=== PATIENT | female | born 1985 | race Caucasian/White ===

== ENCOUNTER 2018-03-26 15:19 | Emergency (ER) | payer OTHER ==
[~2018-03-26] VITALS: Ht 165.1 cm; Wt 63.5 kg
[2018-03-26] MEDS ORDERED: CLINDAMYCIN PHOS 600 MG/ 4 ML VIAL IM ONE (15:30)
[2018-03-26] MEDS ORDERED: HYDROCODONE/APAP 10MG-325MG TAB PO ONE (15:30)
--- OUTSIDE RECORDS SUMMARY | 2018-03-28 14:06 | XMS REPORT ---
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 Allergies, Adverse Reactions, Alerts This patient has no known allergies or adverse reactions. Medications This patient has no known medications. Encounters Start Date/Time End Date/Time Encounter Type Admission Type Attending [facility] Facility Care Department Encounter ID 2018-04-11 00:00:00 2018-04-11 00:00:00 Outpatient [facility] [id number] 2018-04-05 00:00:00 2018-04-05 00:00:00 Outpatient [facility] [id number] 2018-03-24 14:50:13 2018-03-24 14:50:13 Outpatient [facility] [id number] 2018-03-23 00:00:00 2018-03-23 00:00:00 Outpatient [facility] [id number] 2018-03-10 08:12:33 2018-03-10 08:12:33 Outpatient [facility] [id number] 2018-02-23 09:46:05 2018-02-23 09:46:05 Outpatient [facility] [id number] 2018-02-22 00:00:00 2018-02-22 00:00:00 Outpatient [facility] [id number] 2018-01-26 07:49:37 2018-01-26 07:49:37 Outpatient [facility] [id number] 2018-01-03 13:48:24 2018-01-03 13:48:24 Outpatient [facility] [id number] 2017-12-10 08:24:58 2017-12-10 08:24:58 Outpatient [facility] [id number] 2017-11-03 07:35:09 2017-11-03 07:35:09 Outpatient [facility] [id number] 2017-10-14 00:00:00 2017-10-14 00:00:00 Outpatient [facility] [id number] 2017-10-08 08:57:04 2017-10-08 08:57:04 Outpatient [facility] [id number]
--- OUTSIDE RECORDS SUMMARY | 2018-03-28 14:06 | XMS REPORT | Clinical Summary ---
Author Author [facility] Organization [facility] Address Unknown Phone Unavailable Care Team Providers Care Supervisor Curing Room Name Role Phone Bebe Oden MD PCP Allergies Active Allergy Reactions Severity Noted Date Comments Sulfamethoxazole-Trimetho Hives, Breathing 04/21/2017 prim problems, Swelling Vancomycin Hives, Breathing 04/21/2017 problems, Swelling Current Medications Prescription Sig. Disp. Refills Start End Date Status Date lisinopril-hydrochlorothi Take 1/2 tablet by mouth 45 tablet 2 08/08/19 Active azide (ZESTORETIC) in the morning. 18 10-12.5 mg per tabletIndications: Essential hypertension, benign ciclesonide (ZETONNA) 37 Use 1 [place] in each 6.1 g 0 10/09/19 Active mcg/actuation nasal HFA nostril daily. 18 inhalerIndications: Allergic sinusitis cetirizine (ZYRTEC) 10 mg Take 1 tablet by mouth 30 tablet 1 01/04/20 Active tabletIndications: daily (with dinner) As 18 Seasonal allergic needed for allergies. rhinitis, unspecified trigger busPIRone (BUSPAR) 10 mg Take 2 tablets by mouth 2 120 tablet 3 01/27/20 Active tabletIndications: ALIYAH times daily. 18 (generalized anxiety disorder) gabapentin (NEURONTIN) Take 2 capsules by mouth 120 capsule 0 03/10/20 Active 300 mg in the morning, 1 capsule 18 capsuleIndications: in the afternoon, and 1 Bilateral carpal tunnel capsule at night. syndrome busPIRone (BUSPAR) 10 mg Take 2 tablets by mouth 2 120 tablet 2 04/21/20 06/23/19 Discontin tablet times daily. 17 18 ued lisinopril-hydrochlorothi Take 1 tablet by mouth 30 tablet 0 05/13/20 05/28/20 Discontin azide (ZESTORETIC) daily. 17 17 ued 10-12.5 mg per tabletIndications: Essential hypertension, benign lisinopril-hydrochlorothi Take 1 tablet by mouth 30 tablet 1 05/28/20 08/08/19 Discontin azide (ZESTORETIC) daily. 17 18 ued 10-12.5 mg per tabletIndications: Essential hypertension, benign busPIRone (BUSPAR) 10 mg Take 2 tablets by mouth 2 120 tablet 2 06/23/19 08/08/19 Discontin tabletIndications: ALIYAH times daily. 18 18 ued (generalized anxiety disorder) gabapentin (NEURONTIN) Take 1 capsule by mouth 3 90 capsule 0 07/23/19 08/08/19 Discontin 300 mg times daily. 18 18 ued capsuleIndications: Bilateral carpal tunnel syndrome gabapentin (NEURONTIN) Take 1 capsule by mouth 3 90 capsule 2 08/08/19 12/11/19 Discontin 300 mg times daily. 18 18 ued capsuleIndications: Bilateral carpal tunnel syndrome busPIRone (BUSPAR) 10 mg Take 2 tablets by mouth 2 120 tablet 2 08/08/19 11/04/19 Discontin tabletIndications: ALIYAH times daily. 18 18 ued (generalized anxiety disorder) cetirizine (ZYRTEC) 10 mg Take 1 tablet by mouth 30 tablet 1 10/09/19 01/04/20 Discontin tabletIndications: daily (with dinner). 18 18 ued Allergic sinusitis azithromycin (ZITHROMAX) Take 2 tablets by mouth 6 Each 0 10/09/19 10/14/19 250 mg tabletIndications: on the first day, then 18 18 Allergic sinusitis take one tablet every day for the next 4 days. busPIRone (BUSPAR) 10 mg Take 2 tablets by mouth 2 120 tablet 2 11/04/19 01/27/20 Discontin tabletIndications: ALIYAH times daily. 18 18 ued (generalized anxiety disorder) gabapentin (NEURONTIN) Take 1 capsule by mouth 3 90 capsule 0 12/11/19 01/04/20 Discontin 300 mg times daily. 18 18 ued capsuleIndications: Bilateral carpal tunnel syndrome gabapentin (NEURONTIN) Take 2 capsules by mouth 120 capsule 1 01/04/20 03/10/20 Discontin 300 mg in the morning, 1 capsule 18 18 ued capsuleIndications: in the afternoon, and 1 Bilateral carpal tunnel capsule at night. syndrome Hospital, Clinic, or Ordered Dose Route Frequency Start End Date Status Other Facility Date Administered Medication triamcinolone acetonide 40 mg IX ONCE 10/01/19 10/01/19 Ended (KENALOG-40) injection 40 18 18 mgIndications: Bilateral carpal tunnel syndrome lidocaine 1 % (XYLOCAINE) 1 mL IJ ONCE 10/01/19 10/01/19 Ended injection 1 18 18 mLIndications: Bilateral carpal tunnel syndrome triamcinolone acetonide 40 mg IX ONCE 10/01/19 10/01/19 Ended (KENALOG-40) injection 40 18 18 mgIndications: Bilateral carpal tunnel syndrome lidocaine 1 % (XYLOCAINE) 1 mL IJ ONCE 10/01/19 10/01/19 Ended injection 1 18 18 mLIndications: Bilateral carpal tunnel syndrome methylPREDNISolone sodium 40 mg IM ONCE 10/09/19 10/09/19 Ended succinate (SOLU-MEDROL) 18 18 injection 40 mgIndications: Allergic sinusitis, Acute allergic rhinitis Active Problems Problem Noted Date Essential hypertension, benign 08/08/2017 Bilateral carpal tunnel syndrome 08/08/2017 ALIYAH (generalized anxiety disorder) 08/08/2017 Encounters Date Type Specialty Care Team Description 03/24/2018 Office Visit Family Practice Jorden Negrete MD 03/17/2018 Pharmacy Visit 03/10/2018 Office Visit Family Practice Wilma Carnes NP Bilateral carpal tunnel syndrome (Primary Dx) 03/07/2018 Refill Family Practice Esperanza Medrano MD Bilateral carpal tunnel syndrome 02/23/2018 Procedure Visit Physical Medicine and Almita Magaña MD Bilateral carpal tunnel Rehab syndrome (Primary Dx); Bilateral hand pain; Numbness and tingling in both hands 02/23/2018 Orders Only Family Practice Esperanza Medrano MD Bilateral carpal tunnel syndrome (Primary Dx) 02/23/2018 Telephone Family Practice Esperanza Medrano MD Results 02/03/2018 Pharmacy Visit 02/02/2018 Pharmacy Visit 01/26/2018 Office Visit Psychiatry Raina Arias MD ALIYAH (generalized anxiety disorder); Dietary counseling for Above / Below Normal BMI; Exercise counseling for Above Normal BMI Only! 01/03/2018 Office Visit Family Practice Esperanza Medrano MD Bilateral carpal tunnel syndrome (Primary Dx); Follow up - please schedule pap ; Seasonal allergic rhinitis, unspecified trigger; Need for vaccination 01/03/2018 Pharmacy Visit 12/29/2017 Pharmacy Visit 12/15/2017 Pharmacy Visit 12/10/2017 Office Visit Family Practice Evonne Boyd NP Bilateral carpal tunnel syndrome 12/10/2017 Pharmacy Visit 12/08/2017 Pharmacy Visit 12/08/2017 Pharmacy Visit 12/04/2017 Refill Family Practice Bebe Oden MD Bilateral carpal tunnel syndrome 11/23/2017 Pharmacy Visit 11/21/2017 Pharmacy Visit 11/16/2017 Pharmacy Visit 11/16/2017 Pharmacy Visit 11/09/2017 Pharmacy Visit 11/04/2017 Pharmacy Visit 11/03/2017 Office Visit Psychiatry Raina Arias MD ALIYAH (generalized anxiety disorder) (Primary Dx) 11/03/2017 Pharmacy Visit 11/02/2017 Pharmacy Visit 10/26/2017 Pharmacy Visit 10/08/2017 Office Visit Family Practice Wilma Carnes NP Acute allergic rhinitis (Primary Dx); Allergic sinusitis 10/08/2017 Pharmacy Visit 10/04/2017 Pharmacy Visit 10/03/2017 Pharmacy Visit 10/03/2017 Pharmacy Visit 09/30/2017 Office Visit Family Practice Bebe Oden MD Bilateral carpal tunnel Jorden Negrete MD syndrome (Primary Dx) 09/19/2017 Pharmacy Visit 09/19/2017 Pharmacy Visit 09/02/2017 Pharmacy Visit 09/02/2017 Pharmacy Visit 08/23/2017 Pharmacy Visit 08/09/2017 Pharmacy Visit 08/08/2017 Office Visit Family Practice Raina Arias MD Essential hypertension, Bebe Oden MD benign (Primary Dx); Bilateral carpal tunnel syndrome; ALIYAH (generalized anxiety disorder); Flu vaccine need 08/08/2017 Orders Only Family Practice Bebe Oden MD Bilateral carpal tunnel syndrome 08/08/2017 Pharmacy Visit 08/05/2017 Pharmacy Visit 08/05/2017 Pharmacy Visit 07/23/2017 Office Visit Family Practice Evita Birch MD Bilateral carpal tunnel syndrome (Primary Dx) 07/23/2017 Pharmacy Visit 07/12/2017 Pharmacy Visit 07/12/2017 Pharmacy Visit 07/01/2017 Pharmacy Visit 06/23/2017 Office Visit Psychiatry Raina Arias MD ALIYAH (generalized anxiety disorder) (Primary Dx) 06/23/2017 Pharmacy Visit 06/08/2017 Pharmacy Visit 06/02/2017 Pharmacy Visit 06/01/2017 Pharmacy Visit 05/29/2017 Pharmacy Visit 05/28/2017 Office Visit Family Practice Evonne Boyd NP Essential hypertension, benign 05/28/2017 Pharmacy Visit 05/18/2017 Pharmacy Visit 05/13/2017 Office Visit Family Practice Rogelio Rich MD Essential hypertension, benign (Primary Dx) 05/13/2017 Pharmacy Visit 04/28/2017 Pharmacy Visit 04/27/2017 Orders Only Psychiatry Raina Arias MD ALIYAH (generalized anxiety disorder) 04/26/2017 Pharmacy Visit 04/21/2017 Office Visit Psychiatry Raina Arias MD ALIYAH (generalized anxiety disorder) (Primary Dx) 04/21/2017 Pharmacy Visit after 03/25/2017 Immunizations Name Dates Previously Given Next Due Influenza Vaccine 07/23/2017 (Deferred: Patient Refused) Influenza Vaccine, 08/08/2017 (Deferred: Patient Refused) Seasonal, Injectable Influenza, Seasonal, 05/13/2017 (Deferred: Patient Refused) Injectable TDap (Tetanus Toxoid, 01/03/2018 Reduced Diphtheria Toxoid And Acellular Pertussis, Absorbed) Family History Medical History Relation Name Comments Hypertension Brother Hypertension Maternal Grandmother Cancer Mother adrenal, lung Relation Name Status Comments Brother Maternal Grandmother Mother Social History Tobacco Use Types Packs/Day Years Used Date Current Every Day Smoker Cigarettes 0.5 Smokeless Tobacco: Never Used Tobacco Cessation: Ready to Quit: Yes; Counseling Given: Yes Comments: using Nicotine gums and patches Alcohol Use Drinks/Week oz/Week Comments No Sex Assigned at Date Recorded Not on file Last Filed Vital Signs Vital Sign Reading Time Taken Blood Pressure 119/69 03/24/2018 4:30 PM CDT Pulse 72 03/24/2018 4:30 PM CDT Temperature 36.7 C (98.1 F) 03/24/2018 4:30 PM CDT Respiratory Rate 18 03/24/2018 4:30 PM CDT Oxygen Saturation 97% 01/26/2018 7:49 AM CDT Inhaled Oxygen - - Concentration Weight 74.8 kg (165 lb) 03/24/2018 3:03 PM CDT Height 162.6 cm (5' 4") 03/24/2018 3:03 PM CDT Body Mass Index 28.32 03/24/2018 3:03 PM CDT Plan of Treatment Date Type Specialty Care Team Description 04/05/2018 Office Visit Psychiatry Raina Arias MD [facility] [address] [place] [address] 04/11/2018 Office Visit Plastic Surgery Sammy Rodriguez MD Ref #: [id number] [address] [address] Health Maintenance Due Date Last Done Comments Cervical Cancer Scrn (3 02/26/2005 Yrs) IMM Influenza Seasonal 03/13/2018Mar to August (>/=19 yrs) Procedures Procedure Name Priority Date/Time Associated Diagnosis Comments NEEDLE EMG, 2 EXTREMITIES Routine 02/23/2018 Bilateral carpal tunnel Results for this 10:00 AM CDT syndrome procedure are in the results section. CBC/DIFF Routine 04/27/2017 ALIYAH (generalized anxiety Results for this 10:03 AM BUSINESS PLANNER disorder) procedure are in the results section. COMPREHENSIVE METABOLIC Routine 04/27/2017 ALIYAH (generalized anxiety Results for this PANEL(DBIL NOT INCLUDED) 10:03 AM BUSINESS PLANNER disorder) procedure are in the results section. FREE T4 Routine 04/27/2017 ALIYAH (generalized anxiety Results for this 10:03 AM BUSINESS PLANNER disorder) procedure are in the results section. TEST Routine 04/27/2017 ALIYAH (generalized anxiety Results for this 10:03 AM BUSINESS PLANNER disorder) procedure are in the results section. TSH Routine 04/27/2017 ALIYAH (generalized anxiety Results for this 10:03 AM BUSINESS PL[employer] disorder) procedure are in the results section. VIT D, 25-HYDROXY Routine 04/27/2017 ALIYAH (generalized anxiety Results for this 10:03 AM BUSINESS PLANNER disorder) procedure are in the results section. VITAMIN B12 Routine 04/27/2017 ALIYAH (generalized anxiety Results for this 10:03 AM BUSINESS PLANNER disorder) procedure are in the results section. after 03/25/2017 Results * NEEDLE EMG, 2 EXTREMITIES (02/23/2018 10:00 AM) Narrative Performed At Almita Magaña MD 02/23/20182:38 PM [facility], DEPT PMR [address] [place] [address] ELECTROMYOGRAPHY REPORT NAME : NATALIE NGUYEN GENDER: Female DATE OF : 1985 ORDERING PHYSICIAN: ESPERANZA MEDRANO MD PERF DATE :02/23/2018 10:03 NOTE: RESULTS NOT VALID WITHOUT ATTENDING PHYSICIAN ELECTRONIC SIGNATURE REASON FOR REFERRAL: b/l hand CTS symptoms EMG B/L UE CC: hand numbness HPI:32 year old female with bilateral hand pain, numbness, and tingling for 4 years.Had injections 4 months ago with some improvement of her CTS symptoms.Now hands are starting to bother her again. Left feels worse than right.She is left-handed. REVIEW OF SYSTEMS: Constitutional symptoms:NO FEVER, CHILLS OR WEIGHT CHANGE Gastrointestinal: NO INCONTINENCE Genitourinary: NO INCONTINENCE Musculoskeletal:SEE HPI Skin: NO RASH, LESIONS OR WOUNDS Neurological:+ NUMBNESS -WEAKNESS Psychiatric:-DEPRESSION -ANXIETY Endocrine: -DM - THYROID SOCIAL HISTORY:LIVES WITH HER FATHER AND DAUGHTER IN A HOUSE +TOB - QUIT 3 MONTHS AGO USING VAPOR In past +ETOHand+DRUGS : [employer] FOR 2 YEARS OCCUPATION: [employer] PHYSICAL EXAM CONSTITUTIONAL: GEN APPREARANCE: NAD VITALS: P 69 RR 16 TEMP 97.9 NECK: SUPPLE MUSCULOSKELETAL: DIGITS AND NAILS:NO PITTING INSPECTION:NO ATROPHY PALPATION: NL MUSCLE BULK ROM:FULL STRENGTH: 5/5 BILATERAL UES TONE: NORMAL TONE GAIT: NORMAL SPECIAL TESTS: - TINEL S + PHALEN S - BILATERALLY - SPURLING S SKIN: INSPECTION: NO RASH PALPATION: NL TURGOR NEUROLOGIC: SENSATION: LT DECREASED RIGHT HAND DTR: SYMMETRIC PSYCHIATRIC: ORIENTATION: TO NAME AND MEMORY : GOOD RECALL EVENTS MOOD / AFFECT: APPROPRIATE PHYSICIAN: MD YLUISA MAGAÑA Sensory Nerve / Sites Rec. Site Distance Onset Drew Onset Lat Peak Lat Amp Temp. mm m/s ms ms V C L Median - Digit III (Antidromic) Wrist Dig III 140 38.4 3.6 4.4 28.6 32 L Ulnar - Digit V (Antidromic) Wrist Dig V 140 49.8 2.8 3.4 26.0 32.4 R Median - Digit III (Antidromic) Wrist Dig III 140 34.9 4.0 4.9 13.9 32.5 R Ulnar - Digit V (Antidromic) Wrist Dig V 140 51.7 2.7 3.4 23.0 32.2 Motor Nerve / Sites Rec. Site Distance Velocity Latency Amplitude Temp. mm m/s ms mV C L Median - APB Wrist APB 804.1 8.9 32.2 Elbow APB 220 52.1 8.3 7.3 32 L Ulnar - ADM Wrist ADM 802.7 9.8 31 B.Elbow ADM 210 58.4 6.3 8.8 31 R Median - APB Wrist APB 804.4 8.6 32.4 Elbow APB 225 49.1 9.0 8.7 32.4 R Ulnar - ADM Wrist ADM 802.6 8.2 32.2 B.Elbow ADM 220 63.0 6.0 8.9 32.2 EMG EMG Summary Table Spontaneous MUAP Comment Muscle IA Fib PSW Fasc Other Effort Recruit Dur Amp Polys Comment R. Abductor pollicis brevis Normal 0 0 None . Normal Normal Normal Normal None . L. Abductor pollicis brevis Normal 0 0 None . Normal Normal Normal Normal None . NERVE SUMMARY: SENSORY: RIGHT MEDIAN: PROLONGED PEAK LATENCY, NORMAL AMPLITUDE RIGHT ULNAR: NORMAL PEAK LATENCY, NORMAL AMPLITUDE LEFT MEDIAN: PROLONGED PEAK LATENCY, NORMAL AMPLITUDE LEFT ULNAR: NORMAL PEAK LATENCY, NORMAL AMPLITUDE MOTOR: RIGHT MEDIAN: NORMAL ONSET LATENCY, NORMAL AMPLITUDE, NORMAL CONDUCTION VELOCITY RIGHT ULNAR: NORMAL ONSET LATENCY, NORMAL AMPLITUDE, NORMAL CONDUCTION VELOCITY LEFT MEDIAN: NORMAL ONSET LATENCY, NORMAL AMPLITUDE, NORMAL CONDUCTION VELOCITY LEFT ULNAR: NORMAL ONSET LATENCY, NORMAL AMPLITUDE, NORMAL CONDUCTION VELOCITY MUSCLE SUMMARY: NORMAL INSERTIONAL ACTIVITY, NO SPONTANEOUS ACTIVITY, NORMAL MUAPS, NORMAL RECRUITMENT. ATTENDING PHYSICIAN CONCLUSION: LABS, IMAGING, AND PERTINENT MEDICAL RECORDS REVIEWED AND SUMMARIZED FROM [facility] ABOVE. 1. ABNORMAL STUDY. 2. ELECTRODIAGNOSTIC EVIDENCE OF BILATERAL, MILD ON THE LEFT AND MILD MODERATE ON THE RIGHT, MEDIAN MONONEUROPATHIES AT THE WRISTS: SENSORY, MOTOR (ON R), DEMYELINATING. FINDINGS CONSISTENT WITH CARPAL TUNNEL SYNDROME. 3. NO ELECTRODIAGNOSTIC EVIDENCE OF BILATERAL UPPER LIMB PERIPHERAL POLYNEUROPATHY IN AREAS TESTED. 4. NO RADICULAR SYMPTOMS AT THIS TIME. 5. PLEASE RECONSULT FOR ADDITIONAL TESTING IF SYMPTOMS PROGRESS OR PERSIST. PLAN: FOLLOW UP WITH THE REFERRING PHYSICIAN. FACULTY:[facility] ELECTRODIAGNOSTIC LABORATORY NORMAL REFERENCE VALUES FOR COMMON NERVE CONDUCTION STUDIES References used for this table from: 1. Marko and Earl, Manual of Nerve Conduction Studies, 2nd edition, 2006, [place], [place], [place] (for a complete listing please refer to this manual) and2. * Wale Monge, and Prince, Electrodiagnostic Medicine, 2nd edition, 2002, [place], [place], [place]. Skin temperature should be > 32 degrees Celsius in the upper limb and > 30 degrees Celsius in the lower limb. Final determination of normality will be made by Attending Physician taking in consideration conditions of testing. Motor Nerve Studies NerveCV(M/s)Onset latency (ms) Amplitude (mV) F-wave (ms) Axillary to Deltoid --<5.4 ms >4.6 mV-- Median to APB (8cm) >49 M/sec <4.5 ms >5 mV*<31.6 ms Musculocut.to Biceps --<5.6 ms > 4.0mV-- Radial to EDC (8cm) >54 M/sec <3.5 ms >4.3 mV-- Suprascapular (Supraspinatus) --<4.3 ms >1.6 mV-- (IS)--<4.8 ms >1.5 mV-- Ulnar to ADM (8cm) (W to BE) > 52 M/sec 2.3-4.4 ms>6.1 +/- 1.9 mV* <31.5 ms (BE to AE) > 43 M/sec Ulnar to FDI --<4.6 ms >5.1 mV-- Femoral to quads (above ligament) --<8.5 ms 0.2 11mV -- (below ligament) --<7.4 ms 0.2 11mV -- Peroneal to EDB (8cm) (ankle to fib head) >38 M/sec <6.5 ms >1.3 mV <61.2 ms (>2.6 mV if under 40 yo) (across knee) >42 M/sec Peroneal to TA >43 M/sec <4.9 ms >1.7 mV-- Tibial to AH (8cm) >39 M/sec <6.1 ms >4.4 mV<61.4 ms Sensory Nerve Studies Nerve CV (M/s) Peak latency (ms) Amplitude (V)-onset to peak Lat. antebrach.cut. --<2.5 ms >5 V Med. antebrach cut. --<2.6 ms >4 V Median to digit 2,3 (14cm) --<3.7 ms*>10 V (>15-19 V if under 50 yo) Radial to base thumb (10cm)--<2.8 ms >7 V Ulnar to digit 5 (14cm) --<3.7 ms*>6 V (>11-14 V if under 50 yo) Dorsal ulnar cut. (10cm) --<2.9 ms >5 V Comparison studies: Median/Radial to thumb --<3.1/3.0 ms>10/3 V Median/Ulnar transcarpal --<2.4/2.4 ms>10/4 V Median/Ulnar 4th digit--<4.1/3.9 ms>5/5 V Lat. fem. cut. (Spevak) >51 M/sec <6.0 ms 2.0 +/- 1.0 V Med. fem. cut.--<3.5 ms 3.4-7.9 V Superficial peroneal (14cm)--<4.2 ms 7.7 +/- 3.9 V Sural (14 cm)--<4.5 ms 10-50 V Plantar (14 cm) (Medial)--<3.7 ms 10-30 V (Lateral)--<3.7 ms 8-20 V Other Nerve Conductions Onset latency (ms) Amplitude (mV) H-reflex to FCR<18.9 ms> 0.8 mV H-reflex to gastrocnemius<35 ms -- Blink reflex(R1) <13 ms (R2 ipsi/contra)<40/41 ms Cranial VII (preauricular)2.8-4.1 ms (postauricular)3.2- 4/4 ms Cranial XI1.7-3.0 ms> 3-4 mV * VIT D, 25-HYDROXY (04/27/2017 10:03 AM) Vit D, 25-Hydroxy 33.6 30 - 100 ng/mL BT DIAGNOSTIC Comment: IMMUNOLOGY Vitamin D deficiency has been defined by the [place] of [employer] and Endocrine Society guideline as a level of serum 25-OH Vitamin D less than 20 ng/mL. The Endocrine Society further defines Vitamin D insufficiency as a level between 21 and 29 ng/mL and sufficiency as a level between 30 and 100 ng/mL. Performing Organization Address City/[facility] Phone Number [facility]NOSTIC IMMUNOLOGY * COMPREHENSIVE METABOLIC PANEL(DBIL NOT INCLUDED) (04/27/2017 10:03 AM) Albumin 4.0 3.4 - 5.0 g/dL [facility] 4 Calcium 9.2 8.50 - 10.20 mg/dL BT [facility] 4 CO2 29.3 21 - 32 mmol/L BT [facility] 4 Chloride 102 98 - 107 mmol/L BT [facility] 4 Creatinine 0.78 0.60 - 1.30 mg/dL BT [facility] 4 Glucose 95 70 - 99 mg/dL BT [facility] 4 Alk Phos 98 45 - 117 U/L BT [facility] 4 Potassium 4.0 3.50 - 5.10 mmol/L BT [facility] 4 Sodium 139 136 - 145 mmol/L [facility] 4 ALT 33 12 - 78 U/L [facility] 4 AST 19 15 - 37 U/L [facility] 4 Urea Nitrogen 20 (H) 7 - 18 mg/dL [facility] 4 T Bilirubin 0.2 0.2 - 1.0 mg/dL [facility] 4 T Protein 7.1 6.4 - 8.2 g/dL BT [facility] 4 GFR, Estimated >60 mL/min/1.73 m2 BT [facility] 4 GFR, Estim, Afr-Am >60 mL/min/1.73 m2 [facility] 4 Anion Gap 7.7 BT [facility] 4 Specimen Blood Performing Organization Address City/State/Zipcode Phone Number M[facility]YS [facility] 4 * TSH (04/27/2017 10:03 AM) TSH 1.49 0.36 - 3.74 uIU/mL BT [facility] 4 Specimen Blood Performing Organization Address City/[facility]ode Phone Number [facility] * FREE T4 (04/27/2017 10:03 AM) Free T4 1.07 0.89 - 1.76 ng/dl BT [facility] 3 Specimen Blood Performing Organization Address [facility] Phone Number [facility] * VITAMIN B12 (04/27/2017 10:03 AM) Vitamin B12 1,032 (H) 211 - 911 pg/mL BT [facility] 3 Specimen Blood Performing Organization Address [facility] Phone Number [facility] * TEST (04/27/2017 10:03 AM) Negative [facility] Specimen Urine Performing Organization Address [facility] Phone Number [facility] * CBC/DIFF (04/27/2017 10:03 AM) WBC 10.7 4.5 - 11.0 K/uL [facility] 2 RBC 4.09 (L) 4.20 - 5.40 M/uL [facility] 2 Hemoglobin 12.7 12.0 - 16.0 g/dL BT [facility] 2 Hematocrit 38.3 37.0 - 47.0 % BT [facility] 2 MCV 94 (H) 82 - 92 fL BT [facility] 2 MCH 31.1 27.0 - 32.0 pg BT [facility] 2 MCHC 33.2 32.0 - 36.0 g/dL BT [facility] 2 RDW 42.0 36.4 - 46.3 fL BT [facility] 2 Platelet 304 150 - 400 K/uL BT [facility] 2 Mean Platelet Volume 11.8 9.4 - 12.4 fL BT [facility] 2 Percent NRBC 0.0 BT [facility] 2 Absolute NRBC 0.00 BT [facility] 2 Neutrophil 65.1 34.0 - 70.0 % BT [facility] 2 Lymphocyte 24.5 20.0 - 50.0 % BT [facility] 2 Monocyte 6.6 5.0 - 12.0 % BT [facility] 2 Eosinophil 2.9 0.7 - 5.0 % BT [facility] 2 Basophil 0.4 0.1 - 1.2 % BT [facility] 2 Pct Immat Gran 0.5 0.0 - 0.5 BT [facility] 2 Neutrophil, Abs 6.96 (H) 1.56 - 6.13 K/uL BT [facility] 2 Lymphocyte, Abs 2.61 1.18 - 3.74 K/uL BT [facility] 2 Monocyte, Abs 0.70 (H) 0.24 - 0.36 K/uL BT [facility] 2 Eosinophil, Abs 0.31 0.04 - 0.36 K/uL BT [facility] 2 Basophil, Abs 0.04 0.01 - 0.08 K/uL BT [facility] 2 Absol Immat Gran 0.05 (H) 0.00 - 0.03 K/uL BT [facility] 2 Specimen Blood Performing Organization Address City/State/Zipcode Phone Number [facility] 2 after 03/25/2017
== END 2018-03-26 16:08 | disposition home or self-care (01) ==
LOC: ER 15:19
DX: S90.821A Blister (nonthermal), right foot, initial encounter (principal); L03.115 Cellulitis of right lower limb
CPT/HCPCS: 99282

== ENCOUNTER 2024-06-07 17:24 | Emergency (ER) | payer OTHER ==
[~2024-06-07] VITALS: Ht 165.1 cm; Wt 72.3 kg
[2024-06-07 17:29] VITALS: PULSE 99; RESP 16; TEMP 98.7
[2024-06-07] MEDS ORDERED: LISINOPRIL10 MG PO (17:48)
[2024-06-07] MEDS ORDERED: AZITHROMYCIN250 MG PO (18:12)
[2024-06-07] MEDS ORDERED: TYLENOL325 MG PO (18:12)
[2024-06-07] MEDS ORDERED: DIPHENHYDRAMINE25 M2 PO (18:12)
[2024-06-07] MEDS ORDERED: IBU800 MG PO (18:12)
[2024-06-07 18:34] VITALS: BP 123/83; PULSE 95; RESP 16; TEMP 98.8; O2SAT 98
== END 2024-06-07 18:30 | disposition home or self-care (01) ==
LOC: FSED 17:28
DX: R50.9 Fever, unspecified (principal); J10.1 Influenza due to other identified influenza virus with other respiratory manifestations; R00.0 Tachycardia, unspecified; Z11.52 Encounter for screening for COVID-19
CPT/HCPCS: 0223U; 71046; 83518; 87400; 99284